=== PATIENT | female | born 1955 | race Caucasian/White ===

== ENCOUNTER → 2016-11-09 20:32 | Outpatient (CLI) | payer SELFPAY | END | disposition home or self-care (01) | LOC: D.LABREF 20:32 | DX: Z11.59 Encounter for screening for other viral diseases (principal) ==

== ENCOUNTER 2019-12-01 15:26 | Inpatient (IN) | payer OTHER ==
[~2019-12-01] VITALS: Ht 162.6 cm; Wt 57.7 kg
[2019-12-02] MEDS ORDERED: LEXAPRO10 MG PO (13:22)
[2019-12-02] MEDS ORDERED: MOBIC7.5 MG PO (13:35)
[2019-12-03 09:35] LABS: BASOPHILS 0.5 % (0-2); HEMATOCRIT 40.1 % (36.0-48.0); HEMOGLOBIN 12.8 g/dL (12-16); IMMATURE GRANULOCYTES 0.3 % (0-5); LYMPHOCYTES 34.6 % (15-50); MCH 29.8 pg (26.0-34.0); MCHC 31.9 g/dL (31.0-37.0); MCV 93.5 fL (80.0-100.0); MEAN PLATELET VOLUME 10.4 fL (7.4-10.4); MONOCYTES 7.3 % (2-11); NEUTROPHILS 55.3 % (40-80); PLATELET COUNT 285 10x3/uL (130-400); RBC 4.29 10x6/uL (4.00-5.40); RDW 12.4 % (11.5-14.5)
[2019-12-03 09:44] LABS: CALC OSMOLALITY 280 mosm/kg (275-300); CALCIUM 9.1 mg/dL (8.5-10.1); CARBON DIOXIDE 30.1 mmol/L (21.0-32.0); CHLORIDE - SERUM 106 mmol/L (98-107); CREATININE - SERUM 0.8 mg/dL (0.6-1.3); GLUCOSE 95 mg/dL (74-106); POTASSIUM - SERUM 4.3 mmol/L (3.5-5.1); SODIUM 140 mmol/L (136-145); UREA NITROGEN 18 mg/dL (7-18); eGFR NON AFRICAN AMERICAN 77 mL/min (90-120)
[2019-12-03 09:47] LABS: APTT 30.5 SECONDS (22.8-39.4); INR 0.96 (0.85-1.17); PROTIME 12.8 SECONDS (11.6-15.0)
[2019-12-03 09:54] LABS: BILIRUBIN NEGATIVE (NEGATIVE); GLUCOSE NEGATIVE (NEGATIVE); KETONE NEGATIVE (NEGATIVE); NITRITE NEGATIVE (NEGATIVE); SPECIFIC GRAVITY 1.005 (1.005-1.020); UROBILINOGEN NORMAL (NORMAL)
[2019-12-03 09:55] LABS: BACTERIA FEW /hpf (NEGATIVE); EPITHELIAL CELLS RARE /hpf (0-5); RED CELLS - URINE OCC /hpf (0-5); WHITE CELLS - URINE RARE /hpf (NEGATIVE)
[2019-12-10 05:41] VITALS: BP 98/62; BMI 21.8
--- NOTE | 2019-12-10 09:03 | NUR ---
CHECK BOTH WAITING ROOMS. NO FAMILY AVAILABLE. ATTEMPTED TO CONTACT JENNIFER MURILLO AND NO ANSWER. WILL PASS ON IN REPORT.
[2019-12-10 13:35] VITALS: BP 87/55
[2019-12-10 15:58] VITALS: BP 78/48
[2019-12-10 16:10] LABS: BASOPHILS 0 % (0-2); EOSINOPHILS 0 % (0-7); HEMATOCRIT 33.1 % (36.0-48.0); HEMOGLOBIN 10.8 g/dL (12-16); IMMATURE GRANULOCYTES 0.2 % (0-5); LYMPHOCYTES 2.9 % (15-50); MCH 30.7 pg (26.0-34.0); MCHC 32.6 g/dL (31.0-37.0); MEAN PLATELET VOLUME 10.6 fL (7.4-10.4); MONOCYTES 1.7 % (2-11); NEUTROPHILS 95.2 % (40-80); PLATELET COUNT 253 10x3/uL (130-400); RBC 3.52 10x6/uL (4.00-5.40); RDW 12.5 % (11.5-14.5)
[2019-12-10 16:13] LABS: ANION GAP 7.1 mmol/L (8-16); CALCIUM 8.2 mg/dL (8.5-10.1); CARBON DIOXIDE 29.3 mmol/L (21.0-32.0); CREATININE - SERUM 0.9 mg/dL (0.6-1.3); POTASSIUM - SERUM 4.4 mmol/L (3.5-5.1)
--- NOTE | 2019-12-10 17:29 | OP ---
PATIENT NAME: VENANCIO ARDON MEDICAL RECORD: [id number] :59 LOCATION:D. D.1206 ADMISSION DATE:12/10/19 SURGEON: DALE AUSTIN DO DATE OF OPERATION: 12/10/2019 PROCEDURE PERFORMED: Right total hip arthroplasty. PREOPERATIVE DIAGNOSIS: Right hip osteoarthritis. POSTOPERATIVE DIAGNOSIS: Right hip osteoarthritis. INDICATIONS: Ms. Ardon is a 64-year-old female who has had right hip pain for quite some time. She has tried injections, physical therapy in all manner of nonoperative treatments to no avail. She was seen in my office earlier this month and she has tired of dealing with the pain and wanted something done surgically. This is affecting her activities of daily living and she could not bear it anymore. I showed her the x-rays and showed how much osteoarthritis she had with spurring off the femoral head and wear on the superior aspect of the joint and that is with nonweightbearing x-rays. She was aware of all that and aware of the risks of infection, bleeding, damage to nerves and vessels, need for further surgery, leg length discrepancy, continued pain, fracture, failure of implants, blood clots, and even and signed the consent. SURGEON: Dale Austin DO DESCRIPTION OF PROCEDURE: The patient was taken to the operative suite, laid in supine position, given general anesthetic and intubated. She was given 2 grams of Ancef, 80 mg of gentamicin, 1 gram of TXA preoperatively. The patient was then moved over to the [place] table and positioned. The right hip was then prepped and draped in sterile fashion. Timeout was performed. Everyone was in agreement with the correct side, site, patient and procedure. I then began by dissecting down to the tensor fascia garrett muscle, taking the fascia anteriorly and muscle belly posteriorly. Opened up the rectus interval. Rectus was then opened and taken medially and tensor fascia laterally. I then exposed the ascending branch of the lateral femoral circumflex, tied it off and coagulated with the Aquamantys. This was then cut. We then exposed the capsule and opened up the capsule and then tagged the capsule. Put Hohmanns around the neck and made a femoral neck cut. I then removed the head and the labrum as well as the pulvinar and began reaming, first with a 44 up to a 50. Tried to impact the cup and need to medialize a little bit more and I did that with a 44 and then up to 50. Impacted the cup in place and this was done under fluoroscopy and it fit very well and was solidly fixed. I then put the liner in and impacted it into place, then exposed the femur and started with the canal finder Buzzoek cutter and then broached from a 4 up to a 10. The 10 fit very well. We then reduced it with a -6 neck, had equal leg lengths to the left on x-ray, measuring off the lesser trochanter. I then dislocated the hip and removed the trials and irrigated thoroughly and then put in the 10 stem and the -6 dual mobility head and neck and reduced it. X-rays were then done on the femur and on AP pelvis. There were no x-rays seen in the femur and no fractures seen in the femur rather, and AP pelvis showed equal lengths between left and right hips off the lesser trochanters. The site was then irrigated with 10% povidone-iodine and 500 mL of normal saline solution and let set for 3 minutes. We then irrigated out that with a liter of normal saline. I then put in Alfreda powdered and vancomycin powder and Jesus Manuel Case, certified surgical first aid trainer then closed the tensor fascia garrett fascia with #1 Vicryl in a [id number] and then a OPERATIVE REPORT [id number] VENANCIO ARDON running locking stitch. We then closed the skin with 2-0 Vicryl in inverted interrupted fashion, 4-0 Monocryl on the skin and Prineo glue placed on the skin and then dressed with Telfa and Tegaderm. She was then awakened and taken to recovery in stable condition. BLOOD LOSS: Approximately 250 mL. COMPLICATIONS: None. TRANSINT:[id number] Voice Confirmation ID: [id number] DOCUMENT ID: [id number] DALE AUSTIN DO at 1724 CC: [id number] DICTATION DATE: 12/10/19 0833 CARDING SUPERVISOR: 12/10/19 1218 ADM IN [facility] [address] [place] [address]
[2019-12-10 17:45] VITALS: BP 97/53; Ht 162.6 cm; Wt 57.7 kg
[2019-12-10 19:51] VITALS: BP 98/56
--- NOTE | 2019-12-10 19:51 | NUR ---
ASSESSMENT PER FLOW SHEET, VS OBTAINED, IV IN LEFT FA INTACT WITH NO REDNESS OR EDEMA INFUSING VIA PUMP 1/2 NS AT 50ML/HR PER MD ORDERS, SEE EMAR, PT REPORTS FLATUS, PT INST ON NEEDING TO VOID OR WILL HAVE TO DO AN IN AND OUT CATH, PT VERBALIZES UNDERSTANDING, INC TO RIGHT HIP INTACT, FRESH ICE PACK TO INC, PT INST ON AND DEMONSTRATED I.S. WITH GOOD EFFORT, C/O INC PAIN, ADM TORADOL SIVP PER MD ORDERS, SEE EMAR, SCD'S CONNECTED TO PUMP AND WORKING PROPERLY, PT DENIES NEEDS, BED IN LOW POSITION, SIDE RAILS X 2, CALL LIGHT IN REACH, SPOUSE AT BEDSIDE
--- NOTE | 2019-12-10 20:30 | NUR ---
PT REAL ESTATE PROFESSOR LIGHT, PT PLACED ON BED PAYNE, MARLENE CORDERO CHARGE NURSE, REPORTS PT VOIDED 100 MLS OF DARK YELLOW URINE BY SELF WITH NO DIFFICULTY, PT REMOVED FROM BED PAYNE PER MARLENE CORDERO CHARGE NURSE
--- NOTE | 2019-12-10 21:24 | NUR ---
PT RESTING WITH EYES CLOSED, AROUSES TO SOFT VERBAL STIMULATION, ADM 2100 MEDS AND PAIN MED PER MD ORDERS, PT REQUESTS TO ONLY TAKE OXYIR 5MG, PT DENIES FURTHER NEEDS
--- NOTE | 2019-12-10 22:30 | NUR ---
PT RESTING WITH EYES CLOSED, RESP QUIET, NO DISTRESS NOTED, LEFT UNDISTURBED AT THIS TIME
[2019-12-11 00:35] VITALS: BP 85/51
--- NOTE | 2019-12-11 00:35 | NUR ---
PT AROUSES TO OPENING OF DOOR, VS OBTAINED, RATES INC PAIN 07/04, DENIES NEED TO VOID AT THIS TIME, INFORMED PT THAT SHE WILL NEED TO VOID AGAIN WITHIN 2-4 HOURS, PT VERBALIZES UNDERSTANDING, SCD'S CONTINUE ON AND WORKING PROPERLY, DENIES NEEDS AT THIS TIME, BED IN LOW POSITION, SIDE RAILS X 2, CALL LIGHT IN REACH
--- NOTE | 2019-12-11 01:53 | NUR ---
PT LITHOPONE CHARGER LIGHT, PT PLACED ON BEDPAN, VOIDED 350 MLS OF DARK YELLOW URINE, PT DID OWN MAYRA CARE, ADM PAIN MED PER MD ORDERS, SEE EMAR, SCD'S CONTINUE ON AND WORKING PROPERLY, PT DENIES FURTHER NEEDS, BED IN LOW POSITION, SIDE RAILS X 2, CALL LIGHT IN REACH
[2019-12-11 04:55] VITALS: BP 90/53
--- NOTE | 2019-12-11 04:55 | NUR ---
PT RESTING WITH EYES CLOSED, AROUSES TO SOFT VERBAL STIMULATION, VS OBTAINED, PT DOES I.S. WITH GOOD EFFORT, SCD'S ON AND WORKING PROPERLY, PT DENIES PAIN, FRESH H20 SERVED, DENIES FURTHER NEEDS
--- NOTE | 2019-12-11 06:16 | NUR ---
PT RESTING WITH EYES CLOSED, AROUSES TO SOFT VERBAL STIMULATION, ADM 0600 MEDS AND HUNG NEW BAG OF 1/2 NS VIA PUMP PER MD ORDERS, SEE EMAR, FRESH H20 SERVED, REQUESTS TO TAKE PAIN MED AFTER BREAKFAST, PT DENIES FURTHER NEEDS
[2019-12-11 06:33] LABS: ANION GAP 5.4 mmol/L (8-16); CALCIUM 7.7 mg/dL (8.5-10.1); CARBON DIOXIDE 30.8 mmol/L (21.0-32.0); CREATININE - SERUM 0.9 mg/dL (0.6-1.3); POTASSIUM - SERUM 4.2 mmol/L (3.5-5.1)
[2019-12-11 07:31] LABS: BASOPHILS 0.1 % (0-2); EOSINOPHILS 0.2 % (0-7); HEMATOCRIT 28.6 % (36.0-48.0); HEMOGLOBIN 9.2 g/dL (12-16); IMMATURE GRANULOCYTES 0.1 % (0-5); LYMPHOCYTES 18.1 % (15-50); MCH 29.9 pg (26.0-34.0); MCHC 32.2 g/dL (31.0-37.0); MCV 92.9 fL (80.0-100.0); MEAN PLATELET VOLUME 10.8 fL (7.4-10.4); MONOCYTES 9.7 % (2-11); NEUTROPHILS 71.8 % (40-80); PLATELET COUNT 238 10x3/uL (130-400); RBC 3.08 10x6/uL (4.00-5.40); RDW 12.5 % (11.5-14.5); WBC 8.2 10x3/uL (4.8-10.8)
[2019-12-11 07:45] VITALS: BP 100/59
--- NOTE | 2019-12-11 07:45 | NUR ---
PT IS RESTING IN BED WITH EYES OPEN. RESPIRATIONS ARE EVEN AND UNLABORED. PT IS AAO X 4. DRESSING TO RIGHT HIP NOTED WITH SCANT AMOUNT OF SANGUINOUS DRAINAGE NOTED. PT DENIES PRESENCE OF NUMBNESS/TINGLING TO RLE. PT ASSISTED WITH VOIDING BY USE OF BED PAYNE. PT VOIDS LARGE AMOUNT OF CLEAR YELLOW URINE WITHOUT DIFFICULTY. INCENTIVE SPIROMETER AT BEDSIDE AND ENCOURAGED. PT VERBALIZES UNDERSTANDING. BED IS IN THE LOWEST POSITION. CALL LIGHT AND BEDSIDE TABLE ARE WITHIN REACH. SIDE RAILS X 2. PT DENIES FURTHER NEEDS. WILL CONT TO MONITOR.
[2019-12-11 11:28] VITALS: BP 82/44
[2019-12-11 15:21] VITALS: BP 93/54
--- NOTE | 2019-12-11 18:28 | NUR ---
PT REQUESTS TO AMBULATE HALLWAY. PT AMBULATES HALLWAY WITH STAND BY ASSIST AND WALKER. PT DENIES PRESENCE OF DIZZINESS/N/V AT THIS TIME. PT ASSISTED BACK TO BED. PT DENIES FURTHER NEEDS. BED IS IN THE LOWEST POSITION. CALL LIGHT AND BEDSIDE TABLE ARE WITHIN REACH. SIDE RAILS X 2 . INCENTIVE SPIROMETER AT BEDSIDE. PT DENIES FURTHER NEEDS. WILL CONT TO MONITOR.
[2019-12-11 19:24] VITALS: BP 86/52
--- NOTE | 2019-12-11 20:00 | NUR ---
ALERT SITTING UP IN BED, REQUESTING PAIN MEDS SOON POSSIABLE, SEE SHIFT ASSESSMENT, CALL LIGHT IN REACH
[2019-12-12 00:05] VITALS: BP 89/53
[2019-12-12 03:44] VITALS: BP 88/53
[2019-12-12 07:03] LABS: BASOPHILS 0.2 % (0-2); EOSINOPHILS 1.1 % (0-7); HEMATOCRIT 28.8 % (36.0-48.0); HEMOGLOBIN 9.2 g/dL (12-16); IMMATURE GRANULOCYTES 0.2 % (0-5); MCH 29.8 pg (26.0-34.0); MCHC 31.9 g/dL (31.0-37.0); MCV 93.2 fL (80.0-100.0); MEAN PLATELET VOLUME 10.9 fL (7.4-10.4); MONOCYTES 9.5 % (2-11); PLATELET COUNT 221 10x3/uL (130-400); RBC 3.09 10x6/uL (4.00-5.40); RDW 12.6 % (11.5-14.5)
[2019-12-12 07:16] LABS: ANION GAP 9.7 mmol/L (8-16); CARBON DIOXIDE 28.6 mmol/L (21.0-32.0); CREATININE - SERUM 0.9 mg/dL (0.6-1.3); POTASSIUM - SERUM 4.3 mmol/L (3.5-5.1)
[2019-12-12 07:21] LABS: WBC 5.7 10x3/uL (4.8-10.8)
[2019-12-12 07:30] VITALS: BP 90/54
--- NOTE | 2019-12-12 08:00 | NUR ---
AWAKE AND ALERT. ORIENTED X3. NO C/O AT THIS TIME. LUNGS ARE CLEAR BILATERALLY, NO COUGH NOTED. REPORTED USING IS INSTRUCTED. SKIN IS INTACT WITHOUT REDNESS EXCEPT INCISION TO RIGHT GROIN/THIGH AREA WHICH HAS A DRY INTACT DRESSING IN PLACE. SL TO LEFT FOREARM IS PATENT WITHOUT REDNESS AT INSERTION SITE. DENIES NEEDS. UP TO BR WITH ONE PERSON MIN ASSIST. VOIDED WITHOUT DIFFICULTY.
[2019-12-12] MEDS ORDERED: ELIQUIS2.5 MG PO (09:06)
[2019-12-12] MEDS ORDERED: VISTARIL50 MG PO (09:06)
[2019-12-12] MEDS ORDERED: oxyCODONE IR PO (09:06)
[2019-12-12] MEDS ORDERED: KEFLEX500 MG PO (09:07)
--- NOTE | 2019-12-12 09:17 | NUR ---
REQUESTED AND GIVEN ONE OXY 5MG PO FOR C/O RIGHT HIP PAIN LEVEL 3. WILL MONITOR.
[2019-12-12 12:17] VITALS: BP 87/55
--- NOTE | 2019-12-12 13:06 | NUR ---
DISCHARGE INSTRUCTIONS GIVEN BOTH VERBALLY AND WRITTEN. ALL QUESTIONS ANSWERED. PATIENT VERBALIZED UNDERSTANDING OF SAME. DRESSING TO RIGHT GROIN CHANGED. INCISION IS CLEAN DRY AND WELL APPROXIMATED. WAITING ON RIDE TO D/C HOME.
--- NOTE | 2019-12-12 13:19 | MORECARE ---
CASE MANAGEMENT DISCHARGE SUMMARY PATIENT: VENANCIO ARDON UNIT: [id number] ADM DATE: 12/10/19 AGE: 64 : 59 SEX: F ROOM/BED: D.1206 AUTHOR: ISAI,DOC PHYSICIAN: REFERRING PHYSICIAN: JOHN AUSTIN DO DATE OF SERVICE: 12/12/19 Discharge Plan Patient Name: VENANCIO ARDON Facility: [facility]:[place] : 1955 Planned Disposition: Outpatient PT\OT Anticipated Discharge Date: 12/12/19 Discharge Date: Expected LOS: 2 Initial Reviewer: [email or web address] Initial Review Date: 12/10/2019 Generated: 12/12/19 2:18 pm Comments DCP- Discharge Planning Updated by [email or web address]: Roseline Chen on 12/12/19 12:[address] DC Plans: [facility] Thursday 12/14 @4:15 pm. Patient states that she has a walker, toiler seat riser, Tub bench. CM met with patient to discuss initial discharge planning. Patient is in agreement to proceed with the assessment with present. Patient reports that she lives at home independently with her spouse. Patient is alert/oriented. Stairs/steps: 1.PCP: Dr. Pagan. Pharmacy: [facility]. Patient states they have been able to obtain all of their prescribed medications. HHS: No. DME: 2 wheeled walker, toilet riser, tub bench. Patient gives permission to speak with family members/care givers. Emergency contact: Shankar Ardon (spouse) [phone]. 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 CM discussed the availability of HH, Rehab, DME services. Patient request OP Therapy with [facility]. Patient feels safe returning to previous environment. Patient denies being hospitalized within the past 30 days. Patient denies the use of community resources BLENDING SUPERVISOR. Transportation at time of discharge: Shankar. Voices no other needs at this time. DCPIA - Discharge Planning Initial Assessment Updated by [email or web address]: Roseline Chen on 12/12/19 1:14 pm * Is the patient Alert and Oriented? Yes * How many steps to enter\exit or inside your home? * PCP Dr. Pagan * Pharmacy [facility] * Preadmission Environment Home with Family * ADLs Independent * Equipment Elevated [place] Seat Rolling Walker * Other Equipment Shower tub bench * List name and contact numbers for known caregivers / representatives who currently or will assist patient after discharge: Shankar cardozo [phone] * Verbal permission to speak to the caregivers and representatives has been obtained from the patient. Yes * Community resources currently utilized None * Please name any agencies selected above. [facility] * Additional services required to return to the preadmission environment? Yes * Can the patient safely return to the preadmission environment? Yes * Has this patient been hospitalized within the prior 30 days at any hospital? No Patient Name: VENANCIO ARDON Page [id number] at 1319 All edits/amendments must be made on the electronic document DICTATION DATE: 12/12/191317 MOLDING ASSOCIATE: SOPHIA 12/12/198 RPT#: [id number] DC DATE: STATUS: ADM IN [facility] [address] [place] [address] END OF REPORT
--- NOTE | 2019-12-12 14:50 | NUR ---
DISCHARGED TO HOME AMBULATORY WITH . ALL QUESTIONS ANSWERED. SL TO LEFT FOREARM D/C WITH CATHETER INTACT. ALL BELONGINGS WITH PATIENT. 4 EXTRA DRESSINGS SENT WITH PATIENT.
--- NOTE | 2019-12-15 18:26 | MORECARE ---
CASE MANAGEMENT DISCHARGE SUMMARY PATIENT: VENANCIO ARDON UNIT: [id number] ADM DATE: 12/10/19 AGE: 64 : 59 SEX: F ROOM/BED: D.1206 AUTHOR: ISAI,DOC PHYSICIAN: REFERRING PHYSICIAN: JOHN AUSTIN DO DATE OF SERVICE: 12/15/19 Discharge Plan Patient Name: VENANCIO ARDON Facility: [facility]:[place] : 1955 Planned Disposition: Outpatient PT\OT Anticipated Discharge Date: 12/12/19 Discharge Date: 12/12/2019 Expected LOS: 2 Initial Reviewer: [email or web address] Initial Review Date: 12/10/2019 Generated: 12/15/19 7:26 pm Comments DCP- Discharge Planning Updated by [email or web address]: Roseline Chen on 12/12/19 12:[address] DC Plans: [facility] Thursday 12/14 @4:15 pm. Patient states that she has a walker, toiler seat riser, Tub bench. CM met with patient to discuss initial discharge planning. Patient is in agreement to proceed with the assessment with present. Patient reports that she lives at home independently with her spouse. Patient is alert/oriented. Stairs/steps: 1.PCP: Dr. Pagan. Pharmacy: [facility]. Patient states they have been able to obtain all of their prescribed medications. HHS: No. DME: 2 wheeled walker, toilet riser, tub bench. Patient gives permission to speak with family members/care givers. Emergency contact: Shankar Ardon (spouse) [phone]. 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 CM discussed the availability of HH, Rehab, DME services. Patient request OP Therapy with [facility]. Patient feels safe returning to previous environment. Patient denies being hospitalized within the past 30 days. Patient denies the use of community resources BUSINESS MANAGER COLLEGE OR UNIVERSITY. Transportation at time of discharge: Shankar. Voices no other needs at this time. DCPIA - Discharge Planning Initial Assessment Updated by [email or web address]: Roseline Chen on 12/12/19 1:14 pm * Is the patient Alert and Oriented? Yes * How many steps to enter\exit or inside your home? * PCP Dr. Pagan * Pharmacy [facility] * Preadmission Environment Home with Family * ADLs Independent * Equipment Elevated [place] Seat Rolling Walker * Other Equipment Shower tub bench * List name and contact numbers for known caregivers / representatives who currently or will assist patient after discharge: Shankar cardozo [phone] * Verbal permission to speak to the caregivers and representatives has been obtained from the patient. Yes * Community resources currently utilized None * Please name any agencies selected above. [facility] * Additional services required to return to the preadmission environment? Yes * Can the patient safely return to the preadmission environment? Yes * Has this patient been hospitalized within the prior 30 days at any hospital? No Last DP export: 12/12/19 12:19 p Patient Name: VENANCIO ARDON Page [phone] at 1826 All edits/amendments must be made on the electronic document DICTATION DATE: 12/15/191825 EARLY CHILDHOOD TEACHER ASSISTANT: SOPHIA 12/15/191825 RPT#: [id number] DC DATE:12/12/19 STATUS: DIS IN [facility] [address] [place] [address] END OF REPORT
== END 2019-12-12 14:50 | disposition home or self-care (01) | DRG 470 ==
LOC: D.SDCHOLD 12-10 05:15 → D.M3 12-10 05:15 → D.SDCHOLD 12-10 07:00 → D.M3 12-10 08:55
PROVIDERS: Family Medicine; ADMIT Orthopaedic Surgery; ATTEND Orthopaedic Surgery
PROC: 0SR90JA Replacement of Right Hip Joint with Synthetic Substitute, Uncemented, Open Approach (ICD-10-PCS; principal; 2019-12-10 07:00)
DX: M16.11 Unilateral primary osteoarthritis, right hip (principal); F41.8 Other specified anxiety disorders; G89.29 Other chronic pain

== ENCOUNTER → 2019-12-01 19:34 | Outpatient (CLI) | payer OTHER ==
[~2019-12-01 19:34] MED LIST: LEXAPRO10 MG PO; MOBIC7.5 MG PO
== END | disposition home or self-care (01) ==
LOC: D.LABREF 19:34
PROVIDERS: ATTEND Orthopaedic Surgery
DX: M16.11 Unilateral primary osteoarthritis, right hip (principal)